=== PATIENT | male | born 1960 | race Caucasian/White ===

== ENCOUNTER 2019-03-15 08:28 | Day surgery (SDC) | payer OTHER ==
[2019-03-14 10:54] VITALS: BMI 35.9
[2019-03-15] MEDS ORDERED: LIDOCAINE HCL/PF 2% SDV 5ML VIAL ONE (10:55)
[2019-03-15] MEDS ORDERED: MIDAZOLAM HCL 2 MG/2 ML SINGLE DOSE VIAL ONE (10:56)
[2019-03-15] MEDS ORDERED: PROPOFOL 20 ML ONE ×2 (10:56)
[2019-03-15] MEDS ORDERED: ceFAZolin SODIUM 1 GM VIAL ONE (11:17)
[2019-03-15] MEDS ORDERED: ceFAZolin SODIUM 1 GM VIAL IVPB ONE (11:22)
[2019-03-15] MEDS ORDERED: BUPIVACAINE HCL/PF 0.25% (2.5MG/ML) 10 ML VIAL ONE (11:23)
[2019-03-15] MEDS ORDERED: DEXAMETHASONE SOD PHOSPHATE 4 MG/1 ML VIAL ONE (11:38)
[2019-03-15] MEDS ORDERED: LIDOCAINE 1%/EPI 1:100000 (20 ML MULTI DOSE VIAL) IJ ONE (11:55)
[2019-03-15] MEDS ORDERED: BUPIVACAINE HCL/PF 0.5% (5MG/ML) 10 ML VIAL IJ ONE (11:56)
[2019-03-15] MEDS ORDERED: oxyCODONE HCL 5 MG TABLET PO PRN (12:41)
[2019-03-15] MEDS ORDERED: ONDANSETRON 4 MG/2 ML VIAL IVPUSH PRN (12:41)
[2019-03-15] MEDS ORDERED: KETOROLAC TROMETHAMINE 30 MG/1 ML VIAL IVPUSH ONE ×2 (12:42→13:06)
[2019-03-15] MEDS ORDERED: ACETAMINOPHEN 1000 MG/100 ML VIAL (NON FORMULARY) IVPB ONE ×2 (12:42→13:07)
[2019-03-15] MEDS ORDERED: LACTATED RINGERS SOLUTION 1,000 ML IV SCH ×2 (12:45)
[2019-03-15] MEDS ORDERED: ACETAMINOPHEN INJECTION 100 ML IVPB ONE (12:55)
[2019-03-15 13:48] VITALS: TEMP 97.8
[2019-03-15 15:18] VITALS: BP 122/69; PULSE 75
--- NOTE | 2019-03-22 16:48 | PATH ---
Surgical Pathology Report Patient Name: MANOJ SARGENT [facility]. Rec. #: [id number] /Age/Gender: 1960 (Age: 59) / M Account: [id number] Location: [facility] SURGICAL Taken: 03/15/2019 Received: 03/15/2019 Reported: 03/22/2019 Physicians: Erik Mcrae M.D. Specimen(s) Received SUBMANDIBULAR MASS (FRESH) Clinical History Localized enlarged lymph nodes Final Diagnosis Surgical Pathology Report with Immunohistochemistry Analysis performed at [place], [place] ([id number]) shows the following: DIAGNOSIS: SUBMANDIBULAR LYMPH NODE, EXCISIONAL BIOPSY: - INVOLVEMENT BY A DIFFUSE LARGE B-CELL LYMPHOMA. SEE COMMENT. Comment: H&E stained section shows the betty architecture is effaced by diffusely infiltrated atypical lymphocytes. The lymphocytes are predominantly medium to large with round to oval to irregular nuclear contours and some with nucleoli. They are positive for CD20, PAX-5, CD79a, CD10, BCL6, C-MYC, and negative for CD30, BCL2, Cyclin D1, MUM1, IgD, KATERINA, and T-cell markers. Proliferation index on the neoplastic cells is increased (~80%). Residual reactive lymphoid follicles are present. The above findings are consistent with involvement by a diffuse large B-cell lymphoma. Correlation with pending FISH for MYC, BCL2, and BCL6 gene rearrangement results is recommended. Submitted H&E slides (1, 2, 3, 4, and 6) have been reviewed, which demonstrate similar morphologic features to those observed in section from block 5. This case was sent to [place], [place] for hematopathology consultation. The above diagnosis reflects the opinion of Jesus Cornejo M.D., from [place], [place]. FLOW CYTOMETRY ANALYSIS PERFORMED AND REPORTED BY [place], [place] ([id number]) SHOWS THE FOLLOWING: INTERPRETATION: SUBMANDIBULAR LYMPH NODE: - B-cell lymphoma, CD10+, see comment. Comment Correlation with morphologic evaluation of the original tissue sections is recommended. Phenotype: A monoclonal lambda, CD10 positive B-cell population is present (35%)(total B-cells are 62% of total cells). CD20 is bright. The T-cells (33% of total) show no galan T-cell antigenic deletion. CD4:CD8 ratio = 3.7:1. This case was discussed with Dr. Mcrae on March 22, 2019. See [facility] report ([id number]) for additional details. Electronically Signed Jackeline Ramos M.D. 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 MYC rearrangements are characteristic of Burkitt lymphoma, however, they can also be seen infrequently in other B-cell lymphomas. Correlation with clinicopathological findings and other laboratory tests is indicated. Negative for a rearrangement involving BCL6. Negative for a rearrangement involving BCL2. See [facility] (Specimen #: [id number]) for additional details. Jackeline Ramos M.D. Gross Description Received fresh labeled "right submandibular mass," is a 3.4 x 2.6 x 2.1 cm aldrich red, ovoid, encapsulated mass. The outer surface is inked blue and the specimen is serially sectioned. Sectioning reveals homogeneous aldrich, lobulated, fleshy parenchyma. A medical customer service representative portion is placed in RPMI solution and saved in the histology refrigerator. The remainder of the specimen is entirely submitted in 6 cassettes. 03/15/2019 saudi03/15/2019
--- NOTE | 2019-04-11 17:49 | OP ---
DATE OF OPERATION: 03/15/2019 SURGICAL ATTENDING: Aliya Early MD PREOPERATIVE DIAGNOSIS: Right submandibular lymphadenopathy. POSTOPERATIVE DIAGNOSIS: Right submandibular lymphadenopathy. ANESTHESIA: General endotracheal. PROCEDURE: Right submandibular lymph node excision. DESCRIPTION OF PROCEDURE: The patient was taken into the operating room, placed in a supine position. Endotracheally intubated. Neck ultrasound was performed showing an enlarged right submandibular lymph node adjacent and posterior to the right submandibular gland. The neck was then prepped and draped in the usual sterile fashion. Localize was administered, and a horizontal incision was made parallel and inferior to the right mandible. This was carried down through the subcutaneous tissues and platysma. Subplatysmal flaps were raised. Two branches of the marginal mandibular branch of the facial nerve were identified, dissected, and preserved. Nerve monitoring was utilized. The right submandibular lymph node was dissected free from surrounding tissues including the posterior aspect of the submandibular gland with which it was not attached or invaded. The pedicle was clamped, cut, and tied and this way it was removed intact. It was then sent to Pathology for permanent evaluation. Hemostasis was achieved. The wound was then closed in 2 layers. Dermabond was placed. The patient was then awakened, extubated, and taken to recovery in stable condition. Dr. Early, the attending surgeon, was present throughout the entire procedure. ALYIA EARLY M.D. [id number]
== END 2019-03-15 15:19 | disposition home or self-care (01) ==
LOC: JASU-SURG 08:28
PROVIDERS: ATTEND Surgery
PROC: 07B10ZX Excision of Right Neck Lymphatic, Open Approach, Diagnostic (ICD-10-PCS; principal; 2019-03-15 10:30)
DX: C83.31 Diffuse large B-cell lymphoma, lymph nodes of head, face, and neck (principal)
CPT/HCPCS: 88305-TC; 94760; J0131